=== PATIENT | male | born 2000 | race Caucasian/White ===

== ENCOUNTER → 2024-05-19 | Outpatient (CLI) | payer OTHER | LOC: M PLAIMG 14:44 | PROVIDERS: ATTEND Physician Assistant | DX: H90.0 Conductive hearing loss, bilateral (principal) ==

== ENCOUNTER 2024-12-13 08:28 | Day surgery (SDC) | payer OTHER ==
[~2024-12-13] VITALS: Ht 175.3 cm; Wt 82.6 kg
[~2024-12-13 08:28] MED LIST: LIDOCAINE 2% 100 MG/5 ML SDV (FOR ANES.) As Ordered ONE; MIDAZOLAM INJ 2 MG/2 ML VIAL As Ordered ONE; RAME8TAB2 PO; ROCURONIUM BROMIDE 50MG/5ML VIAL As Ordered ONE
[2024-12-13] MEDS ORDERED: LACRILUBE (AKWA TEARS) OPHTH OINT 3.5 GM As Ordered ONE (08:37)
[2024-12-13] MEDS: SCOPOLAMINE 1MG TRANSDERMAL PATCH TOP ONE (09:15)
[2024-12-13] MEDS: OXYMETAZOLINE 0.05% NASAL SPRAY As Ordered ONE (10:53)
[2024-12-13] MEDS ORDERED: ACETAMINOPHEN 1000MG/100ML IV BAG As Ordered ONE (10:54)
[2024-12-13] MEDS ORDERED: ONDANSETRON 4MG/2ML VIAL As Ordered ONE (10:54)
[2024-12-13] MEDS: CIPRODEX OTIC SUSP 7.5 ML As Ordered ONE (10:54)
[2024-12-13] MEDS ORDERED: dexAMETHasone 4 MG/ML 1 ML VIAL As Ordered ONE (10:54)
[2024-12-13] MEDS ORDERED: KETOROLAC 30 MG/ML 1 ML VIAL As Ordered ONE (10:54)
[2024-12-13] MEDS ORDERED: SUGAMMADEX SODIUM 500 MG/5 ML VIAL As Ordered ONE (10:55)
[2024-12-13 12:40] VITALS: BP 123/69; TEMP 97.6; O2SAT 97
== END 2024-12-13 13:13 | disposition home or self-care (01) ==
LOC: M SDC 08:28
PROVIDERS: ATTEND Otolaryngology
DX: H69.83 Other specified disorders of Eustachian tube, bilateral (principal); H66.93 Otitis media, unspecified, bilateral; H73.893 Other specified disorders of tympanic membrane, bilateral; H90.0 Conductive hearing loss, bilateral; J30.89 Other allergic rhinitis; H74.03 Tympanosclerosis, bilateral
CPT/HCPCS: 69436; C1726; J0131; J1100; J1885; J2250; J2405; J2765; J3010